=== PATIENT | male | born 1960 | race Caucasian/White ===

== ENCOUNTER → 2024-08-19 10:40 | Outpatient (CLI) | payer OTHER, SELFPAY ==
--- NOTE | 2024-08-19 11:49 | EKG_ITS ---
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
[2024-08-19 12:07] LABS: Add Manual Diff / Slide Review NO; Basophils Absolute Auto 0 /uL (0-100); Basophils Percent Auto 0.5 % (0-2); Eosinophils Absolute Auto 100 /uL (0-450); Eosinophils Percent Auto 1.6 % (2-4); Hematocrit 41.6 % (41-53); Hemoglobin 14.3 g/dL (13.5-17.5); Lymphocytes Absolute Auto 1700 /uL (1100-4500); Lymphocytes Percent Auto 30.2 % (25-40); Mean Corpuscular HGB Conc 34.3 % (30-36); Mean Corpuscular Hemoglobin 31.7 PG (26-34); Mean Corpuscular Volume 92.4 fL (80-100); Monocytes Absolute Auto 600 /uL (0-900); Neutrophils Absolute Auto 3200 /uL (1500-7000); Neutrophils Percent Auto 57.7 % (50-75); Platelet Count 252 X10^3/uL (150-400); Red Cell Distribution Width 13.2 % (11.6-14.8); White Blood Cell Count 5.6 X10^3/uL (4.5-11.0)
[2024-08-19 12:23] LABS: Albumin 4.5 g/dL (3.5-5.0); BUN Creatinine Ratio 13.4 (6-22); Blood Urea Nitrogen 11 mg/dL (9-20); Calcium 9.9 mg/dL (8.4-10.2); Carbon Dioxide 27 mmol/L (22-32); Chloride 103 mmol/L (98-107); Estimated Glomerular Filt Rate > 60 mL/min (>60); Glucose 99 mg/dL (80-110); HEMOLYSIS < 15 (0-50); Potassium 4.4 mmol/L (3.4-5.1); Sodium 136 mmol/L (137-145)
[2024-08-19 12:29] LABS: Hemoglobin A1C% w Est Avg Glu 5.2 % (4.0-6.0)
[2024-08-19 12:30] LABS: Prealbumin 29.1 mg/dL (17.6-36.0)
[2024-08-19 14:24] LABS: Vitamin D 25 Hydroxy (D3) 45.8 ng/mL (30.0-100.0)
== END ==
PROVIDERS: Referring Provider Orthopaedic Surgery Adult Reconstructive Orthopaedic Surgery; Visit Provider Orthopaedic Surgery Adult Reconstructive Orthopaedic Surgery
DX: Z01.818 Encounter for other preprocedural examination (principal); R77.0 Abnormality of albumin; E55.9 Vitamin D deficiency, unspecified; Z01.812 Encounter for preprocedural laboratory examination; R73.9 Hyperglycemia, unspecified
CPT/HCPCS: 36415; 80048; 82040; 82306; 83036; 84134; 85025; 93005; 93010

== ENCOUNTER → 2025-06-04 11:59 | Outpatient (CLI) | payer MEDICARE, OTHER, SELFPAY ==
[2025-06-04 12:39] LABS: Add Manual Diff / Slide Review NO; Hematocrit 42.1 % (41-53); Hemoglobin 14.3 g/dL (13.5-17.5); Lymphocytes Absolute Auto 1200 /uL (1100-4500); Mean Corpuscular HGB Conc 34.0 % (30-36); Mean Corpuscular Hemoglobin 30.8 PG (26-34); Mean Corpuscular Volume 90.7 fL (80-100); Platelet Count 229 X10^3/uL (150-400)
--- NOTE | 2025-06-04 12:41 | EKG_ITS ---
[facility] [address], [place] [address] Test Date: 2025-06-04 Pat Name: Ken Mehta Department: [facility] Room: Gender: Male Research Assistant Member: DEV : 1960 Requested By: Order Number: [id number] Reading MD: Jorge Alberto Johnson Measurements Intervals [place] Rate: 45 P: 28 [place]: 198 QRS: 0 QRSD: 90 T: 8 QT: 440 QTc: 380 Interpretive Statements Sinus bradycardia Electronically Signed On 06-04-2025 18:08:49 PDT by Jorge Alberto Johnson
[2025-06-04 12:47] LABS: Hemoglobin A1C% w Est Avg Glu 5.1 % (4.0-6.0)
[2025-06-04 12:55] LABS: Albumin 4.7 g/dL (3.5-5.0); Blood Urea Nitrogen 10 mg/dL (9-20); Calcium 9.8 mg/dL (8.4-10.2); Carbon Dioxide 25 mmol/L (22-32); Chloride 104 mmol/L (98-107); Estimated Glomerular Filt Rate > 60 mL/min (>60); Glucose 99 mg/dL (70-99); HEMOLYSIS < 15 (0-50); Potassium 4.4 mmol/L (3.4-5.1); Sodium 137 mmol/L (137-145)
[2025-06-04 13:03] LABS: Prealbumin 23.6 mg/dL (17.6-36.0)
[2025-06-04 15:18] LABS: Vitamin D 25 Hydroxy (D3) 45.7 ng/mL (30.0-100.0)
== END ==
PROVIDERS: PCP Family Medicine; Referring Provider Orthopaedic Surgery Adult Reconstructive Orthopaedic Surgery; Visit Provider Orthopaedic Surgery Adult Reconstructive Orthopaedic Surgery
DX: Z01.818 Encounter for other preprocedural examination (principal); Z01.812 Encounter for preprocedural laboratory examination; E11.9 Type 2 diabetes mellitus without complications; E55.9 Vitamin D deficiency, unspecified
CPT/HCPCS: 36415; 80048; 82040; 82306; 83036; 84134; 85025; 93005

== ENCOUNTER 2025-09-28 07:00 | Day surgery (SDC) | payer MEDICARE, OTHER, SELFPAY ==
[2025-09-24 08:32] VITALS: BMI 28.1
[2025-09-28 07:23] VITALS: BP 167/78; PULSE 52; RESP 16; TEMP 36.1; O2SAT 98
--- NOTE | 2025-09-28 07:28 | P.OP.PRE_ITS ---
Pre-operative Note
--- NOTE | 2025-09-28 07:28 | PM.PREOP ---
Pre-operative Note Interval Note History & Physical reviewed/Exam performed by Physician: Yes Changes to H&P: No
[2025-09-28] MEDS: ACETAMINOPHEN 325 MG TABLET 975 MG PO ×2 (07:30→07:34)
[2025-09-28] MEDS: LACTATED RINGERS 1,000 ML 42 ML IV (07:32)
--- NOTE | 2025-09-28 07:44 | DI.RAD.S_ITS ---
PROCEDURE: XR KNEE RT 1TO2V
[2025-09-28] MEDS: TRANEXAMIC ACID 1,000 MG in SODIUM CHLORIDE 0.9% 100 ML 200 MG IV ×2 (09:28→10:37)
--- NOTE | 2025-09-28 09:40 | SUR.OPER ---
Supine on padded OR bed. Pillow under head, arms secured on padded armboards <90 degree abduction. Safety belt across torso. Non-operative leg secured with tape over blanket over lower leg. Operative leg secured in Lennox positioner. Foam padded brace at thigh of operative leg.
[2025-09-28] MEDS: KETOROLAC 30 MG/ML VIAL 15 MG INJ (09:58)
--- NOTE | 2025-09-28 10:50 | P.OP_ITS ---
Operative Date/Time/Diagnoses
--- NOTE | 2025-09-28 10:50 | PM.OP.1 ---
Operative Date/Time/Diagnoses Date of procedure: 09/28/25 Time of procedure: 09:30 Pre-op diagnosis: Right knee osteoarthritis Post-op diagnosis: same Procedure & Clinicians Procedure: Right total knee arthroplasty Same procedure(s) as scheduled: Yes Surgeon: Eddie Mcdaniels Assisted?: Yes Airplane Pilot: Charmaine Dejesus Anesthesia Type: Spinal, Sedation, Peripheral nerve block and Local Operative Notes Findings: Severe arthritis Closure Type: primary Applied: implant(s) Estimated Blood Loss (mL): 50 Tourniquet time (min): 42 Procedure in detail: Right Gap-Balanced Julio Persona Medial-Congruent Primary Total Knee Arthroplasty Implants: Size 9 Cruciate Retaining Femoral Component Size G Tibial Component Size 10 Medial Congruent Polyethylene Insert Unresurfaced Patella Procedure Summary: This 65-year-old male patient had previously undergone a contralateral total knee arthroplasty with me. During today's surgery noted excellent bone quality, as I had on the contralateral side, and used a very mild varus cut on the tibial side to balanced his extension gap. Stability was appropriate after that. External rotation was set at-3 degrees. Patellar tracking was excellent Procedure in Detail: This patient was seen preoperatively and evaluated for knee pain which was refractory to numerous nonoperative treatment modalities. Their pain correlated with radiographic changes demonstrating significant degeneration in the knee joint. The risks and benefits of continued nonoperative management versus operative management were discussed at length and all of the patient?s questions were answered. Additional educational materials providing further details beyond our discussion in clinic were provided via a publicly available patient education video which included the incidence of medical complications associated with total knee arthroplasty, reasons for revision following total knee arthroplasty, and patient satisfaction rates following total knee arthroplasty. With this understanding of the risks inherent to the procedure, the patient elected to move forward with operative management. Following preoperative optimization, the patient was scheduled for surgery. The patient was met in the preoperative holding area the day of the procedure and all questions were answered. The patient?s nares were swabbed in order to decolonize them from MRSA. Informed consent was signed and the right limb was marked with indelible ink.? The patient was brought back to the operating room where anesthesia was induced. The patient was transferred to the operating table and all bony prominences were padded. The operative site was prepped and draped in the usual sterile fashion. A second prep stick was utilized following drape placement. The incision was marked corresponding to the medial aspect of the tibial tubercle and the patella. Ioban was wrapped circumferentially around the knee. Prior to incision, tranexamic acid and cefazolin were administered. Templating images were displayed. A timeout procedure was performed verifying the patient?s identity, medical comorbidities, allergies, relevant medications, anesthesia type and the surgical plan. All present were in agreement. The assistance of a physician research assistant member was required for positioning, room setup, soft tissue retraction and wound closure. Without this assistance, the procedure would have been significantly more challenging and time consuming.?? The tourniquet was inflated prior to incision. I made an anterior incision over the knee, dissected through the subcutaneous tissues and identified the lateral border of the VMO. Medial and lateral soft tissue flaps were developed. A mid-vastus arthrotomy was performed ensuring that adequate capsular tissue would remain for closure at the conclusion of the procedure. The knee was brought into extension and the medial soft tissues were released off the joint line of the tibia. Tissue overlying the distal anterior femur was released to allow for later assessment for anterior notching but left in place. A portion of the retropatellar fat pad was excised while protecting the patellar tendon. The patella was everted. The patella was not resurfaced. Osteophytes were excised and a lateral facetectomy was performed. The patella was released from its everted position.?? I flexed the knee to 90 degrees and placed retractors to allow access to the notch. An opening reamer was used to gain access to the femoral canal and an intramedullary danii was introduced into the canal. Diaphyseal fit was obtained in order to plan a distal femoral resection at 5 degrees relative to the anatomic axis. A +1 resection was planned and assessed using an meli wing. I then made the cut using a sagittal saw. This provided additional access to the femoral notch. The ACL and PCL were excised. Retractors were placed on the lateral and medial tibia. I hyperflexed the knee while externally rotating it to sublux the tibia anteriorly. I placed a Julio retractor posteriorly and used this to provide additional anterior subluxation. The remainder of the PCL root was released. An extramedullary guide was positioned for a resection in slight varus. A +4 resection off the medial tibia was planned and the tibial cutting jig was pinned in place. I evaluated the depth, varus-valgus alignment and slope of the planned tibial resection prior to making the cut. I cut the tibia with a sagittal saw while using retractors to protect the MCL, patellar tendon, and posterolateral structures.? The knee was repositioned in extension and the Fuzion soft tissue balancing gauge was introduced. This demonstrated that there was equal tension in the medial and lateral compartments of the knee with the knee in full extension and no additional soft tissue releases were necessary. When 50 pounds of force was applied to the Fuzion device, the extension gap opened to 10 mm. I moved the knee into 90 degrees of flexion, and the Fuzion device was recalibrated by removing a 9 mm dru to allow assessment of the flexion gap. The Fuzion block was placed perpendicular to the resected surface of the tibia and the resected surface of the distal femur. Fifty pounds of traction was applied to match the tension of the extension gap. This internally rotated the femur to 3 degrees. Pins were placed in the 10 mm holes. Appropriate sizing was determined and a 4-in-1 block was placed. This was double checked using the Fuzion device to ensure that it would open to an equal distance as the extension gap when the same amount of force was applied. The Fuzion block was also used to assess flexion gap symmetry. An meli wing was used to ensure there would be no anterior notching. Retractors were placed to protect the soft tissues during resection. Captured cuts were performed with a sagittal saw for the anterior and posterior femur as well as the corresponding chamfers.?A laminar dehydration unit operator and retractors were used to expose the posterior knee and the menisci and posterior osteophytes were removed. Trial components were placed and the construct was assessed. Range of motion was assessed by ensuring the knee could achieve full extension and assessing maximum passive knee flexion by elevating the femur and allowing the heel to passively fall towards the buttock. Gap symmetry was assessed by stressing the medial and lateral compartments in both extension and flexion. Laxity was assessed in both extension and flexion and the polyethylene trial was adjusted with shims as necessary. Patellar tracking was assessed with knee flexion. Once satisfied with the construct, I moved forward with implant insertion. Lug holes were drilled in the femur and the tibia was prepped ensuring appropriate sizing and rotation relative to the tibial tubercle.?? The bony ends were irrigated. A portion of the anterior chamfer cut was utilized as a to plug the hole from the intramedullary danii in the femur. I impacted the tibial component into place. The tibia was reduced underneath the femur. I placed the femoral component. I brought the knee into extension and manually pressurized the construct by pushing on the heel. The knee was bathed in a dilute mixture of betadine and peroxide. A mixture of Ropivacaine, Epinephrine and Toradol was infiltrated throughout the soft tissues into structures including the VMO, patellar tendon, quadriceps tendon, MCL and femoral periosteum. The knee was copiously irrigated with pulse lavage. The knee was again trialed. Range of motion was assessed by ensuring the knee could achieve full extension and assessing maximum passive knee flexion by elevating the femur and allowing the heel to passively fall towards the buttock. Gap symmetry was assessed by stressing the medial and lateral compartments in both extension and flexion. Laxity was assessed in both extension and flexion and the polyethylene trial was adjusted with shims as necessary. Patellar tracking was assessed with knee flexion. The tourniquet was let down and the polyethylene trial was removed. I inspected the knee inspected for any residual bleeding. Once hemostasis was achieved I inserted the final polyethylene and ensured appropriate engagement of the dovetail locking mechanism.?? The arthrotomy was closed with non-absorbable interrupted suture ensuring that this extended to the top of the arthrotomy. This was backed up with running barbed suture throughout the arthrotomy. The skin was closed with 2-0 and 3-0 sutures. Surgical glue was applied and a soft dressing was placed.?The sponge, instrument and needle counts were reported as being correct at the end of the case. The patient was transferred from the operating table back to a stretcher. The patient emerged from anesthesia without difficulty and was taken to the PACU in a stable condition.? Plan for aftercare: Weightbearing as tolerated Aspirin 81 twice per day for DVT prophylaxis Multimodal pain regimen with no IV opioids ordered Anticipate discharge home later today Follow up at [facility] in 2 weeks for wound check Complications: none Post-operative Condition: stable Disposition: same day surgery
[2025-09-28 11:31] VITALS: BP 113/62; PULSE 71; RESP 16; TEMP 36.8; O2SAT 95
[2025-09-28 11:37] VITALS: BP 107/62; PULSE 62; RESP 15; TEMP 36.6; O2SAT 94
[2025-09-28 11:42] VITALS: BP 134/70; PULSE 61; RESP 15; TEMP 36.6; O2SAT 97
[2025-09-28 12:52] VITALS: BP 125/74; PULSE 53; RESP 16; O2SAT 95
[2025-09-28] MEDS: MELOXICAM 7.5 MG TABLET 15 MG PO (14:21)
--- NOTE | 2025-09-28 14:21 | PT.IIE ---
Current Diagnoses Unilateral primary osteoarthritis, right knee (09/28/25) Surgery Performed Operation Date: 09/28/25 09:30 Actual Procedures p Total Knee Arthroplasty(Right) - Eddie Mcdaniels MD Surgical History (Last Updated 09/24/25 @ 09:15 by Jennifer Kirkpatrick, RN) H/O uvulectomy Hx of appendectomy Hx of tonsillectomy S/p bilateral myringotomy with tube placement Status post total knee replacement, left Medical History (Last Updated 09/24/25 @ 08:41 by Jennifer Kirkpatrick, RN) Dyslipidemia Genital herpes Primary osteoarthritis of right knee Physical Therapy Inpatient Evaluation/Re-Eval M1 PT IP Prior Functional Status Start: 09/28/25 13:51 Freq: NEEDED Status: Active Protocol: Document 09/28/25 14:12 SAK (Rec: 09/28/25 14:21 SAK [id number]) Medical Review Prior Functional Status Medical History Yes Reviewed Diet/Fluid Regular Consistency Communication A & O x 4 Mobility and Gait SBA bed mobility, CGA to SBA gait x 30' with FWW and gait belt, slow and steady, no LOB, min pain. Discussed in/out of house with patient and . Has 2 stairs, 2 railings, this is second TKA, feels comfortable going home know what to do. Activities of Daily indep Living and IADL's Prior Functional indep Level (Other details ) Social History Household Members spouse Living Arrangements House Number of Floors ( One Floor Floors) Number of Stairs To 2 with 2 railings Enter/Railing? Home Environment Standard Height Toilet,Tub/Shower Home Equipment Front Wheel Walker,Grab Bars In Shower M2 PT-IP Current Condition Start: 09/28/25 13:51 Freq: NEEDED Status: Active Protocol: Document 09/28/25 14:12 SAK (Rec: 09/28/25 14:21 SAK [id number]) Physical Therapy Current Condition Current Condition Evaluation Date 09/28/25 Treatment Diagnosis s/p right TKA Onset Date 09/28/25 M3 PT-IP Subjective Start: 09/28/25 13:51 Freq: NEEDED Status: Active Protocol: Document 09/28/25 14:12 SAK (Rec: 09/28/25 14:21 SAK [id number]) Subjective Physical Therapy Visit Type Type Initial Evaluation Visit Start Time 13:50 Visit Stop Time 14:12 Physical Therapy Visit Comments Patient Comments Patient supine, eating crackers, present. Previous nausea but better now. Hoping to go home from hospital today. post-op compression wrap in place right LE. Patient reports still has handouts at home for HEP, verbal review. House set up for post-op as this is second TKA Therapy Pain Assessment Pain When Pain Assessed At Rest Pain Present Pain Present Pain Reported Location right knee Intensity 3 M4 PT-IP Mobility and Gait Start: 09/28/25 13:51 Freq: NEEDED Status: Active Protocol: Document 09/28/25 14:12 [facility] (Rec: 09/28/25 14:21 [facility] [id number]) PT-Bed Mobility Assessment Rolling Level of Assist Independent Supine to Sit Supine to Sit Standby Assistance Sit to Supine Sit to Supine Standby Assistance Scooting Scooting to Edge of Standby Assistance Bed PT-Transfer Assessment Sit to and From Stand Sit to and from Standby Assistance,Contact Guard Assistance Stand Equipment Transfer Assistive Gait Belt,Front Wheeled Walker Device Transfer Ability Level of Assist Standby Assistance,Contact Guard Assistance Comments Mobility Comments required cues for hand on bed during sit to and from stand, otherwise good safety awareness. Gait Assessment Gait Gait Assistance Standby Assistance,Contact Guard Assist Required: Distance (Feet) 30 Able to Maintain Yes Weight Bearing Status During Gait Assistive Devices Assistive Device Gait Belt,Front Wheeled Walker Gait Deviations General Gait Pattern Within Normal Limits Factors Limiting Gait Function Factors Limiting Decreased Strength,Pain Gait Function Comments Gait Comments post-op, able to unweight right LE during gait. Stair Climbing Assessment Comments Stair Climbing verbal review technique, patient has done previously Comments with prior TKA, demonstrated good understanding. PT-Balance Assessment Sitting Balance and Reactions Static Sitting Normal Balance Ability Dynamic Sitting Normal Balance Ability Standing Balance and Reactions Static Standing Normal Balance Ability Dynamic Standing Normal Balance Ability Device Used FWW M5 PT-IP Objective Assessments Start: 09/28/25 13:51 Freq: NEEDED Status: Active Protocol: Document 09/28/25 14:12 [facility] (Rec: 09/28/25 14:21 [facility] [id number]) Orientation Orientation/Cognition Level of Alertness Alert Orientation Name,Age,Place,Situation Language Function No Deficits Noted Ability Safety Awareness Understands Safety Issues Memory Description No Deficits Noted Gross Range of Motion Upper Extremity ROM Assessment Within Functional Limits Lower Extremity ROM Assessment Within Functional Limits Strength Upper Extremity Strength Assessment Within Functional Limits Comments Strength Comments left WFL, right able to do SLR without extensor lag Coordination Assessment Gross Coordination Gross Coordination WNL Sensation Assessment Sensation Gross Sensation Right LE Impaired Sensation Paresthesia Description M6 PT-IP Treatment Start: 09/28/25 13:51 Freq: NEEDED Status: Active Protocol: Document 09/28/25 14:12 [facility] (Rec: 09/28/25 14:21 [facility] [id number]) Physical Therapy Treatment Other Treatments Other Treatment verbal review HEP; patient has written HO at home and Performed demonstrated good understanding. present. M7 PT-IP Assessment and Plan Start: 09/28/25 13:51 Freq: NEEDED Status: Active Protocol: Document 09/28/25 14:12 [facility] (Rec: 09/28/25 14:21 [facility] [id number]) PT Summary Assessment and Plan Potential Rehabilitation Excellent Potential Status of Condition Stable at Evaluation Summary Impairments ROM,Strength,Gait Progress Towards Safe For Discharge Goals Assessment Summary Patient approved for discharge home. Safe with mobility skills, able to verbalize HEP, has FWW. No further PT needs. Frequency of Treatment Frequency Of Discharge Treatment Weight Bearing Status Weight Bearing Weight Bear as Tolerated Status Discharge Recommendations Transportation Needs Private Vehicle at Discharge
--- NOTE | 2025-09-28 14:23 | SUR.PHASEII ---
PT down and has cleared patient. Patient able to ambulate with walker assist
== END 2025-09-28 14:22 | disposition home or self-care (01) ==
PROVIDERS: PCP Family Medicine; Referring Provider Family Medicine; Visit Provider Orthopaedic Surgery Adult Reconstructive Orthopaedic Surgery
PROC: 0SRC0JZ Replacement of Right Knee Joint with Synthetic Substitute, Open Approach (ICD-10-PCS; CPT 27447; principal; 2025-09-28 09:30)
DX: M17.11 Unilateral primary osteoarthritis, right knee (principal); M25.761 Osteophyte, right knee
CPT/HCPCS: 27447; 73560; 82962; 97161; C1776; C1713; J0689; J1100; J1885; J2405; J2704; J3010; J7050; J7120